=== PATIENT | female | born 1980 | race Caucasian/White ===

== ENCOUNTER → 2016-06-02 | Outpatient (CLI) | payer OTHER ==
[~2016-06-02] MED LIST: PRENTAB16 PO
[2016-06-02 11:43] LABS: HCG, SERUM QUANTITATIVE < 1.0 MIU/ML
[2016-06-02 11:54] LABS: PROGESTERONE 4.7 NG/ML
== END ==
LOC: M SMT 07:58
PROVIDERS: ATTEND Obstetrics & Gynecology Reproductive Endocrinology
DX: Z32.00 Encounter for pregnancy test, result unknown (principal)

== ENCOUNTER → 2016-06-05 | Outpatient (CLI) | payer OTHER ==
[2016-06-05 10:03] LABS: HCG, SERUM QUANTITATIVE < 1.0 MIU/ML
[2016-06-05 10:19] LABS: ESTRADIOL 78.2 PG/ML; LUTEINIZING HORMONE 2.4 mIU/mL; PROGESTERONE 0.9 NG/ML
[2016-06-05 10:20] LABS: FOLLICLE STIMULATING HORMONE 10.9 mIU/mL
== END ==
LOC: M WUC 08:08
PROVIDERS: ATTEND Obstetrics & Gynecology Reproductive Endocrinology
DX: E28.9 Ovarian dysfunction, unspecified (principal)

== ENCOUNTER → 2016-06-27 | Outpatient (CLI) | payer OTHER ==
[2016-06-27 11:11] LABS: PROGESTERONE 12.4 NG/ML
== END | disposition home or self-care (01) ==
LOC: M SMT 08:03
PROVIDERS: ATTEND Obstetrics & Gynecology Reproductive Endocrinology
DX: Z32.00 Encounter for pregnancy test, result unknown (principal)

== ENCOUNTER → 2016-06-30 | Outpatient (REF) | payer OTHER ==
[2016-06-30 10:47] LABS: PROGESTERONE 9.2 NG/ML
== END ==
LOC: M LABSMT 09:35
PROVIDERS: ATTEND Obstetrics & Gynecology Reproductive Endocrinology
DX: Z32.00 Encounter for pregnancy test, result unknown (principal)

== ENCOUNTER → 2016-07-02 | Outpatient (CLI) | payer OTHER ==
[2016-07-02 11:05] LABS: PROGESTERONE 6.5 NG/ML
== END ==
LOC: M SMT 08:23
PROVIDERS: ATTEND Obstetrics & Gynecology Reproductive Endocrinology
DX: Z32.00 Encounter for pregnancy test, result unknown (principal)

== ENCOUNTER → 2016-09-23 | Outpatient (CLI) | payer OTHER ==
--- NOTE | 2016-09-24 03:10 | REP ---
Clinical: Inconclusive PPD test . Comparison: None . Technique: PA and lateral. Findings: The mediastinum and cardiac silhouette are normal. The lung barrett are clear and without acute consolidation, effusion, or pneumothorax. The skeletal structures are intact and normal. Impression: 1. No acute cardiopulmonary process. Signed by Lake Gtz MD 09/24/2016 03:01 A
== END ==
LOC: M RAD 14:55
PROVIDERS: ATTEND Family Medicine
DX: R76.11 Nonspecific reaction to tuberculin skin test without active tuberculosis (principal)

== ENCOUNTER → 2016-11-21 | Outpatient (CLI) | payer OTHER ==
[2016-11-21 18:17] LABS: BASO # 0.1 K/mm3 (0.0-0.2); BASO % 1.4 % (0.0-1.0); EOS # 0.1 K/mm3 (0.0-0.50); EOS % 0.7 % (0.0-3.0); LARGE UNSTAINED CELL # 0.1 K/mm3 (0.0-0.4); LARGE UNSTAINED CELL % 1.8 % (0.0-4.0); LYMPH # 2.1 K/mm3 (1.5-4.5); LYMPH % 26.3 % (24.0-44.0); MEAN CORPUSCULAR HEMOGLOBIN 33.4 pg (27.0-33.0); MEAN CORPUSCULAR HGB CONC 34.5 g/dl (32.0-36.5); MEAN CORPUSCULAR VOLUME 96.9 fl (80.0-96.0); MONO # 0.6 K/mm3 (0.0-0.8); MONO % 7.1 % (0.0-5.0); NEUTROPHILS # 4.9 K/mm3 (1.8-7.7); NEUTROPHILS % 62.6 % (36.0-66.0); PLATELET COUNT, AUTOMATED 392 k/mm3 (150-450); WHITE BLOOD COUNT 7.8 K/mm3 (4.0-10.0)
[2016-11-24 10:58] LABS: HBsAg Prenatal NEGATIVE (NEGATIVE)
== END ==
LOC: M WUC 15:18
PROVIDERS: ATTEND Specialist
DX: Z36 Encounter for antenatal screening of mother (principal); Z3A.00 Weeks of gestation of pregnancy not specified

== ENCOUNTER → 2016-11-24 | Outpatient (CLI) | payer BC, OTHER, SELFPAY | LOC: M LAB 09:24 | PROVIDERS: ATTEND Specialist | DX: N93.8 Other specified abnormal uterine and vaginal bleeding (principal) ==

== ENCOUNTER 2017-09-12 07:40 | Emergency (ER) | payer BC, OTHER ==
[2017-09-12 09:04] LABS: APPEARANCE, URINE HAZY (CLEAR); BACTERIA, URINE AUTO NEGATIVE (NEGATIVE); BILIRUBIN, URINE AUTO NEGATIVE (NEGATIVE); BLOOD, URINE BLOOD NEGATIVE (NEGATIVE); COLOR, URINE YELLOW (YELLOW); GLUCOSE, URINE (UA) AUTO NEGATIVE (NEGATIVE); KETONE, URINE AUTO TRACE mg/dL (NEGATIVE); LEUKOCYTE ESTERASE, URINE AUTO NEGATIVE (NEGATIVE); MUCUS, URINE SMALL (NEGATIVE); NITRITE, URINE AUTO NEGATIVE (NEGATIVE); PROTEIN, URINE AUTO NEGATIVE (NEGATIVE); RBC, URINE AUTO 2 /HPF (0-3); SQUAMOUS EPITHELIAL CELL UR AU 1 /HPF (0-6); UROBILINOGEN, URINE AUTO 0.2 mg/dL (0.0-2.0); WBC, URINE AUTO 1 /HPF (0-3)
== END 2017-09-12 10:09 | disposition home or self-care (01) ==
LOC: M ED 07:40
DX: N83.02 Follicular cyst of left ovary (principal); Z98.890 Other specified postprocedural states
CPT/HCPCS: 76856

== ENCOUNTER → 2017-10-06 | Outpatient (CLI) | payer BC, OTHER ==
[2017-10-06 10:46] LABS: ESTRADIOL 224.1 PG/ML
== END ==
LOC: M SMT 07:56
DX: E28.9 Ovarian dysfunction, unspecified (principal)
CPT/HCPCS: 84443

== ENCOUNTER → 2017-10-12 | Outpatient (CLI) | payer BC, OTHER ==
[2017-10-12 10:06] LABS: HCG, SERUM QUANTITATIVE < 1.0 MIU/ML
[2017-10-12 10:10] LABS: PROGESTERONE 47.4 NG/ML
== END ==
LOC: M SMT 08:00
DX: E28.9 Ovarian dysfunction, unspecified (principal)
CPT/HCPCS: 84702

== ENCOUNTER → 2018-02-25 | Outpatient (CLI) | payer BC, OTHER | LOC: M SMT 09:23 | DX: R76.11 Nonspecific reaction to tuberculin skin test without active tuberculosis (principal); Z11.1 Encounter for screening for respiratory tuberculosis | CPT/HCPCS: 71046 ==

== ENCOUNTER → 2018-07-08 | Outpatient (CLI) | payer BC, OTHER | LOC: M WUC 17:21 | PROVIDERS: ATTEND Nurse Practitioner Adult Health | DX: Z02.1 Encounter for pre-employment examination (principal) ==

== ENCOUNTER 2018-11-02 10:26 | Emergency (ER) | payer OTHER ==
[~2018-11-02] VITALS: Ht 167.6 cm; Wt 65.9 kg
[2018-11-02] MEDS ORDERED: LEVO50TA5 (10:32)
--- NOTE | 2018-11-02 12:25 | REP ---
PELVIC ULTRASOUND: Real-time sonographic evaluation of the pelvis performed utilizing transabdominal and endovaginal technique. The bladder is empty. Uterus measures 10.5 x 4.9 x 5.5 cm. Endometrial thickness is 12 mm. Ovaries appear normal in size and echotexture, right ovary measuring 2.8 x 1.7 x 2.6 cm and left ovary 2.1 x 13 x 2.0 cm. There is no adnexal mass or free fluid. There is no torsion of either ovary with duplex Doppler evaluation. Endometrial echotexture is heterogeneous diffusely. IMPRESSION: Heterogeneous endometrium 12 mm in thickness. No adnexal mass, free fluid or torsion. Electronically Signed by Ambrosio Moore MD 11/02/2018 07:35 P
[2018-11-02 12:43] VITALS: BP 120/76
[2018-11-02 13:20] LABS: FREE T4 0.99 NG/DL (0.76-1.46); THYROID STIMULATING HORMONE 1.22 uIU/ML (0.358-3.740)
== END 2018-11-02 12:44 | disposition home or self-care (01) ==
LOC: M ED 10:26
DX: O20.0 Threatened abortion (principal); O99.281 Endocrine, nutritional and metabolic diseases complicating pregnancy, first trimester; E03.9 Hypothyroidism, unspecified; Z87.891 Personal history of nicotine dependence; Z3A.00 Weeks of gestation of pregnancy not specified; Z79.899 Other long term (current) drug therapy

== ENCOUNTER → 2018-11-05 | Outpatient (CLI) | payer OTHER ==
[~2018-11-05] MED LIST changes: +LEVO50TA5
== END ==
LOC: M SMT 10:43
PROVIDERS: ATTEND Emergency Medicine
DX: O20.0 Threatened abortion (principal); Z3A.00 Weeks of gestation of pregnancy not specified

== ENCOUNTER → 2018-11-08 | Outpatient (CLI) | payer OTHER ==
[2018-11-08 13:50] LABS: PROGESTERONE 8.87 NG/ML
== END ==
LOC: M SMT 11:40
PROVIDERS: ATTEND Specialist
DX: O20.0 Threatened abortion (principal); Z3A.00 Weeks of gestation of pregnancy not specified

== ENCOUNTER → 2019-12-28 | Outpatient (REF) | payer OTHER ==
[2020-03-16 08:33] LABS: FREE T4 0.89 NG/DL (0.76-1.46); THYROID STIMULATING HORMONE 1.26 uIU/ML (0.358-3.740)
== END ==
LOC: M PLALAB 08:07
PROVIDERS: ATTEND Family Medicine
DX: E03.9 Hypothyroidism, unspecified (principal)

== ENCOUNTER → 2020-06-20 | Outpatient (REF) | payer OTHER | LOC: M SFHCWAGY 13:47 | PROVIDERS: ATTEND Nurse Practitioner Family | DX: Z01.419 Encounter for gynecological examination (general) (routine) without abnormal findings (principal) | CPT/HCPCS: 81025; 87624; G0123; G0463 ==

== ENCOUNTER → 2020-06-25 | Outpatient (CLI) | payer OTHER ==
--- NOTE | 2020-06-26 08:33 | REP ---
INDICATION: N93.9 AUB COMPARISON: 09/12/2017 TECHNIQUE: Transabdominal pelvic ultrasound followed by transvaginal examination for better evaluation of the endometrium and adnexa. FINDINGS: Bladder is unremarkable and measures 9.9 x 6.8 x 8.2 cm. Heterogeneous anteverted uterus measures 9.6 x 4.9 x 5.4 cm. The endometrial complex measures 12 mm thickness. Nabothian cysts measured up to 13 mm noted. Bilateral ovaries are normal in appearance and vascularity without evidence for torsion. Right ovary measures 3.9 x 2.2 x 2.9 cm; left ovary measures 2.0 x 1.1 x 2.1 cm. No pelvic fluid or adnexal mass lesion. IMPRESSION: No obvious significant abnormality. Incidental 13 mm nabothian cyst in the cervix. <Electronically signed by Lake Gtz > 06/26/20 [id number]
== END ==
LOC: M WHC 14:57
PROVIDERS: ATTEND Nurse Practitioner Family
DX: N93.9 Abnormal uterine and vaginal bleeding, unspecified (principal); N88.8 Other specified noninflammatory disorders of cervix uteri

== ENCOUNTER → 2021-09-25 | Outpatient (CLI) | payer OTHER | LOC: M WUC 10:03 | DX: M25.531 Pain in right wrist (principal) ==

== ENCOUNTER → 2022-04-10 | Outpatient (CLI) | payer OTHER | LOC: M RAD 12:24 | PROVIDERS: ATTEND Family Medicine | DX: G62.9 Polyneuropathy, unspecified (principal) ==